=== PATIENT | female | born 1985 | race Caucasian/White ===

== ENCOUNTER 2023-01-16 01:08 | Emergency (ER) | payer SELFPAY ==
[~2023-01-16] VITALS: Ht 167.6 cm; Wt 84.1 kg
[2023-01-16 01:11] VITALS: TEMP 98.4
[2023-01-16 01:54] VITALS: BP 124/76; PULSE 88
== END 2023-01-16 01:55 | disposition home or self-care (01) ==
LOC: COL.ER 01:08
DX: J06.9 Acute upper respiratory infection, unspecified (principal); F17.210 Nicotine dependence, cigarettes, uncomplicated; Z20.822 Contact with and (suspected) exposure to COVID-19; Z28.310 Unvaccinated for COVID-19

== ENCOUNTER 2024-07-24 06:21 | Emergency (ER) | payer MEDICAID ==
[~2024-07-24] VITALS: Ht 170.2 cm; Wt 93.2 kg
[2024-07-24 06:25] VITALS: TEMP 97.5
[2024-07-24] MEDS ORDERED: fentaNYL 50 MCG/ML 2 ML VIAL IV ONE (06:30)
[2024-07-24 06:46] LABS: BASO # 0.1 K/mm3 (0.0-0.2); BASO % 0.9 % (0.0-2.0); EOS # 0.3 K/mm3 (0.0-0.7); EOS % 3.1 % (0.0-4.0); GRAN # 5.8 K/mm3 (1.4-6.5); GRAN % 56.8 % (42.2-75.2); LYMPH # 3.1 K/mm3 (1.2-3.4); MEAN CELL VOLUME 78 fl (80.0-100.0); MEAN CORPUSCULAR HGB CONC 30 g/dl (33.0-37.0); MEAN PLATELET VOLUME 9.6 fl (7.4-10.4); MONO # 0.8 K/mm3 (0.1-0.6); MONO % 7.9 % (1.7-9.3); PLATELET COUNT 622 K/mm3 (130-400); RED BLOOD COUNT 3.95 M/mm3 (4.10-5.30); REDCELL DISTRIBUTION WIDTH-CV 18.6 % (11.5-14.5)
[2024-07-24 06:47] LABS: HEMATOCRIT 30.7 % (37.0-47.0); HEMOGLOBIN 9.1 g/dl (12.5-16.0); MEAN CORPUSCULAR HEMOGLOBIN 23 pg (27-31)
[2024-07-24] MEDS ORDERED: Iohexol 300 - 100 ML VIAL IV ONE (06:47)
[2024-07-24] MEDS ORDERED: NS 50 ML IV SCH (06:49)
[2024-07-24 06:59] LABS: ALBUMIN 3.2 g/dL (3.5-5.0); BILIRUBIN,TOTAL 0.2 mg/dL (0.2-1.2); C-REACTIVE PROTEIN 0.59 mg/dL (0.00-0.50); CALCIUM 8.8 mg/dL (8.4-10.2); CREATININE, serum 0.79 mg/dL (0.57-1.11); POTASSIUM 4.1 mEq/L (3.5-4.5); TOTAL PROTEIN 6.5 g/dl (6.2-8.1)
[2024-07-24] MEDS ORDERED: ZITHROMAX Z PA250 MG PO (08:10)
[2024-07-24] MEDS ORDERED: NAPROSYN500 MG PO (08:10)
[2024-07-24 08:13] VITALS: BP 116/75; PULSE 68
[2024-07-24] MEDS ORDERED: Ketorolac 30 MG/ML VIAL IV ONE (08:15)
[2024-07-24] MEDS ORDERED: dexAMETHasone 10 MG/ML VIAL IV ONE (08:15)
== END 2024-07-24 08:25 | disposition home or self-care (01) ==
LOC: COL.ER 06:21
PROVIDERS: Emergency Medicine
DX: J32.2 Chronic ethmoidal sinusitis (principal); F17.210 Nicotine dependence, cigarettes, uncomplicated
CPT/HCPCS: J1100; J1885; J3010; Q9967